=== PATIENT | male | born 1955 | race Caucasian/White ===

== ENCOUNTER 2020-01-06 08:03 | Day surgery (SDC) | payer OTHER ==
[~2020-01-06 08:03] MED LIST: Lactated Ringers 1,000 ML IV SCH
[2020-01-06] MEDS ORDERED: Propofol 200 MG/20 ML SDV ONE ×2 (09:00→10:27)
[2020-01-06] MEDS ORDERED: fentaNYL 100 MCG/2 ML SDV ONE (09:00)
--- NOTE | 2020-01-07 19:06 | OR ---
PRE-OPERATIVE DIAGNOSIS: History of colon polyps. Last colonoscopy was about 3 years ago. POST-OPERATIVE DIAGNOSES: 1. Five small polyps removed. a. 3 mm polyp at 50 cm, removed with cold forceps. b. 3 mm polyp at 45 cm, removed with cold forceps. c. 4 mm polyp at 30 cm, removed with hot snare. d. 2 mm polyp at 25 cm, removed with cold forceps. e. 4 mm polyp at 23 cm, removed with hot snare. 2. Palpable right-sided prostate nodule in this patient with known prostate cancer. PROCEDURE: Colonoscopy with polypectomy x5 (2 using hot snare and 3 using cold forceps). SURGEON: Nimesh Escobar M.D. ANESTHESIA: Monitored anesthesia care. BOWEL PREP: Good. DESCRIPTION OF PROCEDURE: Tam is a 64-year-old male who was brought to the endoscopy suite after discussing risks and benefits of the procedure. Informed consent was obtained for conscious sedation and colonoscopy with or without biopsy and/or polypectomy. We also discussed possibility of missed lesions. Pre-procedure exam was unremarkable. IV, oxygen, and monitors were placed. The patient was placed in the left lateral decubitus position. Sedation was administered and a digital rectal exam was performed and was remarkable for right-sided prostate nodule. Colonoscope was passed into the rectum and slowly advanced all the way to the cecum. Cecum was viewed and photographed. The colonoscope was slowly withdrawn and the mucosa was closed observed in a direct circumferential manner. The ascending colon was unremarkable. The transverse colon revealed 3 mm polyps at 50 and 45 cm. The descending colon revealed 4 mm polyp at 30 cm, removed with hot snare. Sigmoid colon was remarkable for 2 mm at 25 cm and 4 mm at 23 cm, first removed with cold forceps and the second removed with hot snare. Retroflexion was performed. Rectal mucosa unremarkable. Scope was removed. The patient tolerated the procedure well. The patient was monitored until that baseline status. Discharge instructions were reviewed and the patient was discharged in good condition. COMPLICATIONS: None. TOTAL TIME: 26 minutes. ESTIMATED BLOOD LOSS: About 1 mL. RECOMMENDATIONS/FOLLOW-UP: We will await results of path report to determine ideal followup interval. I would like to kindly thank the [facility] for this referral. DMB: 01/06/2020 11:12:12 MODL: 01/06/2020 14:42:29 /[id number]
== END 2020-01-06 12:25 | disposition home or self-care (01) ==
LOC: VM.SDS 08:03
PROVIDERS: ATTEND Family Medicine
DX: Z12.11 Encounter for screening for malignant neoplasm of colon (principal); D12.3 Benign neoplasm of transverse colon; D12.4 Benign neoplasm of descending colon; D12.5 Benign neoplasm of sigmoid colon; C61 Malignant neoplasm of prostate; N40.0 Benign prostatic hyperplasia without lower urinary tract symptoms; E78.5 Hyperlipidemia, unspecified; F17.200 Nicotine dependence, unspecified, uncomplicated; Z01.812 Encounter for preprocedural laboratory examination; Z20.828 Contact with and (suspected) exposure to other viral communicable diseases; Z86.010 Personal history of colon polyps; Z98.890 Other specified postprocedural states; Z79.899 Other long term (current) drug therapy
CPT/HCPCS: 00811; 45380; 45385; 87635; J2704; J3010; J7120; 88305; U0002